=== PATIENT | male | born 1940 | race Caucasian/White ===

== ENCOUNTER → 2019-05-27 15:13 | Outpatient (CLI) | payer MEDICARE, BC, SELFPAY ==
--- NOTE | 2019-05-27 | DI.ECHO.S_ITS ---
[place] +---------+ Hospital +---------+ : : [address] : [place] : : : : [id number] : : : : Phone: [phone] +---------+ Echocardiogram Report + + :Name: ERNESTO MCGRATH Study Date: 05/27/2019 Height: 73 in : :[facility] Weight: 225 lb : : Gender: Male BSA: 2.3 m2 : :: 1940 Age: 78 yrs BP: 144/86 mmHg: :Reason For Study: MURMUR : :Ordering Physician: Maged : :Lucius Performed By: Esa Oneill : :Referring: MAGED HAWKINS : + + Interpretation Summary Left ventricular systolic function is normal without focal wall motion abnormalities with the ejection fraction visually estimated to be 60-65%. There is borderline concentric left ventricular hypertrophy and diastolic parameters suggest a relaxation abnormality of the left ventricle, consistent with probable normal filling pressures. There has been no significant change since the previous study. The right ventricle is mild to moderately dilated but systolic function is normal and appears unchanged compared to the previous study. Pulmonary artery pressures cannot be estimated because of the lack of a measurable TR jet velocity. The left atrium is mildly dilated and measures slightly larger compared to the previous study. The aortic valve is moderately calcified with mild aortic stenosis that is progressive compared to the previous study. The peak aortic velocity is 2.3 m/s with a mean gradient of 12 mmHg compared to 1.7 m/s and mean gradient of 6 mmHg on the previous study. The calculated aortic valve area is 1.6 sports manager?. There is no other significant valvular heart disease. Procedure: A two-dimensional transthoracic echocardiogram with color flow and Doppler was performed. The study quality was technically adequate. Comparison is made with the echocardiogram of 12/18/2007. The patient was in normal sinus rhythm during the exam. Left Ventricle: The left ventricle is normal in size. There is borderline concentric left ventricular hypertrophy. Left ventricular systolic function is normal without focal wall motion abnormalities. The ejection fraction is estimated to be 60-65%. Diastolic parameters suggest a relaxation abnormality of the left ventricle, consistent with probable normal filling pressures. There has been no significant change since the previous study. Right Ventricle: The right ventricle is mild to moderately dilated. The right ventricular systolic function is normal. This is unchanged compared to the previous study. Atria: The left atrium is mildly dilated. This is slightly larger compared to the previous study. Right atrial size is normal. This is unchanged compared to the previous study. The interatrial septum is intact with no evidence for an atrial septal defect. Mitral Valve: There is mild mitral annular calcification. The mitral valve leaflets appear mildly thickened, but open well. There is trace mitral regurgitation. This is unchanged compared to the previous study. Aortic Valve: The aortic valve is trileaflet. The aortic valve is moderately calcified. There is mild to moderately reduced leaflet mobility. There is mild aortic stenosis. This is progressive compared to the previous study. The peak aortic velocity is 2.3 m/sec. The aortic valve mean gradient is 12 mmHg. The calculated aortic valve area is 1.6 cm2. No aortic regurgitation is present. Tricuspid Valve: The tricuspid valve is normal in structure and function. There is trace tricuspid regurgitation. Pulmonary artery pressures cannot be estimated because of the lack of a measurable TR jet velocity. Pulmonic Valve: The pulmonic valve is normal in structure and function. There is trace pulmonic regurgitation. There is no other significant valvular heart disease. Great Vessels: The aortic root is normal size. The dimensions of the ascending aorta are normal. The pulmonary artery is normal size. The inferior vena cava was not visualized. Pericardium/ Pleura There is no pericardial effusion. There is no pleural effusion. MMode/2D Measurements & Calculations LVIDd: 4.5 cm LVOT diam: 2.2 cm LVIDs: 2.9 cm Ao root diam: 3.4 cm FS: 35.7 % Aortic Jxn: 3.1 cm EPSS: 0.54 cm IVSd: 1.1 cm LVPWd: 1.1 cm LV valenzuela. diameter/BSA (cm/m^2): 2.0 LV sys. diameter/BSA (cm/m^2): 1.3 LA A2 area: 25.0 cm2 RA long axis: 5.7 cm LA A4 area: 23.9 cm2 RA area: 16.2 cm2 LA length (vol): 6.4 cm RA vol: 39.3 ml LA vol: 79.5 ml RA : 17.4 ml/m2 LA vol index: 35.1 ml/m2 TAPSE: 2.3 cm Doppler Measurements & Calculations Ao V2 max: 221.9 cm/sec LVOT Max Tyrone: 89.1 cm/sec Ao V2 mean: 165.8 cm/sec LV V1 max P.2 mmHg Ao max P.7 mmHg LV V1 VTI: 21.9 cm Ao mean P.4 mmHg SASHA(I,D): 1.6 cm2 Ao V2 VTI: 52.5 cm SASHA(V,D): 1.6 cm2 sev ratio: 0.42 SASHA indexed to BSA (cm^2/m^2): 0.73 MV E max tyrone: 50.2 cm/sec PA V2 max: 109.3 cm/sec MV A max tyrone: 73.7 cm/sec PA V2 mean: 84.1 cm/sec MV E/A: 0.68 PA mean P.1 mmHg Med Peak E' Tyrone: 5.0 cm/sec PA Accel Time: 0.11 sec E/E' med: 10.1 Lat Peak E' Tyrone: 9.8 cm/sec E/E' lat: 5.1 E/e' average: 7.6 MV dec time: 0.25 sec SV(LVOT): 86.3 ml Reading Physician:RALF
== END ==
PROVIDERS: PCP Family Medicine; Visit Provider Specialist
DX: I35.0 Nonrheumatic aortic (valve) stenosis (principal); R01.1 Cardiac murmur, unspecified
CPT/HCPCS: 93306

== ENCOUNTER → 2020-11-09 14:38 | Outpatient (CLI) | payer MEDICARE, BC, SELFPAY ==
--- NOTE | 2020-11-09 14:40 | DI.ECHO.S_ITS ---
[place] +---------+ Hospital +---------+ : : [address] : [place] : : : : [id number] : : : : Phone: [phone] +---------+ Echocardiogram Report + + :Name: ERNESTO MCGRATH Study Date: 11/09/2020 Height: 73 in : :[facility] ReadingLocation: Weight: 225 lb : : Gender: Male BSA: 2.3 m2 : :: 1940 Age: 79 yrs BP: 136/97 mmHg: :Reason For Study: AORTIC STENOSIS : :Ordering Physician: SHRUTHI, : :MAGED Performed By: Cathy Sprague : :Referring: MAGED HAWKINS : + + Interpretation Summary Left ventricular systolic function remains normal with an estimated ejection fraction of 60 to 65% without any focal wall motion abnormality. Left ventricular size and wall thickness remain normal. Diastolic function is likely normal with probable normal filling pressures. There has been no significant change since the previous study. The right ventricle is mildly enlarged with mildly reduced systolic function and appears slightly less dynamic compared to the previous study. Right ventricular systolic pressure and CVP cannot be measured. Both atria are normal in size and grossly unchanged from the previous exam. There is probable mild to moderate aortic stenosis, slightly progressive since the previous study with a peak velocity of 2.7 m/s and a mean gradient of 17 mmHg, compared to 2.2 m/s and 12 mmHg, respectively, on the previous study. The severity ratio has decreased slightly from 0.42 down to 0.37. There is no other significant valvular abnormality. The ascending aorta is mildly enlarged and the aortic arch measures moderately enlarged. These were unable to be visualized on the previous study. Procedure: A two-dimensional transthoracic echocardiogram with color flow and Doppler was performed. The study quality was technically adequate. Comparison is made with the echocardiogram of 05/27/2019. The patient was in sinus rhythm with heart rates between 62-68 bpm during the exam. Left Ventricle: The left ventricle appears normal in size, wall thickness, and systolic function without any focal wall motion abnormalities. The estimated left ventricular end diastolic volume is 94 ml. The ejection fraction is estimated to be 60-65%. This is unchanged compared to the previous study. Diastolic parameters suggest probable normal left ventricular diastolic function and normal filling pressures. Right Ventricle: The right ventricle is mildly dilated. Right ventricular systolic function is mildly reduced. This is slightly less dynamic compared to the previous study. Atria: Both atria are normal in size. This is grossly unchanged compared to the previous study. There is no Doppler evidence for an interatrial shunt. Mitral Valve: There is mild mitral annular calcification. The mitral valve leaflets appear borderline thickened, but open well. There is trace mitral regurgitation. Aortic Valve: The aortic valve is trileaflet. The aortic valve is moderately calcified. There is moderately reduced leaflet mobility. There is mild to moderate aortic stenosis. This is slightly progressive compared to the previous study. The peak aortic velocity is 2.7 m/sec. The aortic valve mean gradient is 17 mmHg. The calculated aortic valve area is 1.3 cm2. There is trace aortic regurgitation. Tricuspid Valve: The tricuspid valve is normal in structure and function. There is trace tricuspid regurgitation. Pulmonary artery pressures cannot be estimated because of the lack of a measurable TR jet velocity. Pulmonic Valve: The pulmonic valve leaflets are thin and pliable; valve motion is normal. There is no pulmonic valvular regurgitation. Great Vessels: The aortic root is normal size. The ascending aorta is mildly enlarged. The aortic arch is moderately enlarged. The inferior vena cava was not visualized. Pericardium/ Pleura There is no pericardial effusion. There is no pleural effusion. MMode/2D Measurements & Calculations LVIDd: 4.9 cm LVOT diam: 2.2 cm LVIDs: 3.2 cm Ao root diam: 3.4 cm FS: 35.9 % asc Aorta Diam: 3.7 cm IVSd: 0.97 cm Ao Arch Diam (Prox Trans): 3.8 cm LVPWd: 0.88 cm LV valenzuela. diameter/BSA (cm/m^2): 2.2 LV sys. diameter/BSA (cm/m^2): 1.4 LA A2 area: 21.0 cm2 RA long axis: 5.9 cm LA A4 area: 20.5 cm2 RA area: 19.3 cm2 LA length (vol): 6.0 cm RA vol: 53.1 ml LA vol: 61.2 ml RA : 23.5 ml/m2 LA vol index: 27.0 ml/m2 RVD1 (basal): 4.3 cm RVD2 (mid): 4.5 cm TAPSE: 1.8 cm Doppler Measurements & Calculations Ao V2 max: 266.3 cm/sec LVOT Max Tyrone: 92.0 cm/sec Ao V2 mean: 187.3 cm/sec LV V1 max P.4 mmHg Ao max P.4 mmHg LV V1 VTI: 21.8 cm Ao mean P.8 mmHg SASHA(I,D): 1.4 cm2 Ao V2 VTI: 59.5 cm SASHA(V,D): 1.3 cm2 sev ratio: 0.37 SASHA indexed to BSA (cm^2/m^2): 0.63 MV E max tyrone: 58.3 cm/sec PA V2 max: 136.3 cm/sec MV A max tyrone: 73.3 cm/sec PA V2 mean: 88.9 cm/sec MV E/A: 0.80 PA mean P.5 mmHg Med Peak E' Tyrone: 6.1 cm/sec PA pr(Accel): 48.2 mmHg E/E' med: 9.5 Lat Peak E' Tyrone: 8.6 cm/sec E/E' lat: 6.7 E/e' average: 8.1 MV dec time: 0.33 sec SV(LVOT): 84.2 ml Reading Physician:08:14 AM
== END ==
PROVIDERS: PCP Family Medicine; Referring Provider Specialist; Visit Provider Specialist
DX: I35.0 Nonrheumatic aortic (valve) stenosis (principal); R06.00 Dyspnea, unspecified; I77.89 Other specified disorders of arteries and arterioles
CPT/HCPCS: 93306

== ENCOUNTER → 2020-11-23 08:12 | Outpatient (CLI) | payer MEDICARE, BC, SELFPAY ==
[2020-11-23 19:12] LABS: Alanine Aminotransferase 20 IU/L (<50); Albumin 3.8 g/dL (3.5-5.0); Albumin Globulin Ratio 1.5 (1.0-2.8); Alkaline Phosphatase 64 U/L (38-126); Aspartate Aminotransferase 28 IU/L (17-59); BUN Creatinine Ratio 16.5 (6-22); Bilirubin Total 0.6 mg/dL (0.2-1.3); Blood Urea Nitrogen 14 mg/dL (9-20); Calcium 9.7 mg/dL (8.4-10.2); Carbon Dioxide 29 mmol/L (22-32); Chloride 107 mmol/L (98-107); Estimated Glomerular Filt Rate > 60.0 mL/min (>60); Globulin 2.6 g/dL (1.7-4.1); Glucose 105 mg/dL (80-110); HEMOLYSIS < 15 (0-50); Magnesium 1.8 mg/dL (1.6-2.3); Potassium 5.3 mmol/L (3.4-5.1); Sodium 141 mmol/L (137-145); Total Protein 6.4 g/dL (6.3-8.2)
[2020-11-26 11:40] LABS: Cholesterol, Total 150 mg/dL (100-199); HDL-Cholesterol 55 mg/dL (>39); HDL-Particle (Total) 33.7 umol/L (>=30.5); LDL Particle 763 nmol/L (<1000); LDL-Cholsterol 81 mg/dL (0-99); LP-IR Score 47 (<=45); Small LDL- Particle 207 nmol/L (<=527); Triglycerides 72 mg/dL (0-149)
== END ==
PROVIDERS: PCP Family Medicine; Visit Provider Physician Assistant Medical
DX: I10 Essential (primary) hypertension (principal); E78.2 Mixed hyperlipidemia
CPT/HCPCS: 80053; 80061; 83704; 83735

== ENCOUNTER → 2020-12-01 12:06 | Outpatient (CLI) | payer MEDICARE, BC, SELFPAY ==
[2020-12-01 19:41] LABS: Alanine Aminotransferase 22 IU/L (<50); Albumin 3.7 g/dL (3.5-5.0); Albumin Globulin Ratio 1.4 (1.0-2.8); Alkaline Phosphatase 69 U/L (38-126); Aspartate Aminotransferase 33 IU/L (17-59); BUN Creatinine Ratio 17.9 (6-22); Bilirubin Total 0.5 mg/dL (0.2-1.3); Blood Urea Nitrogen 14 mg/dL (9-20); Calcium 9.4 mg/dL (8.4-10.2); Carbon Dioxide 25 mmol/L (22-32); Chloride 106 mmol/L (98-107); Estimated Glomerular Filt Rate > 60.0 mL/min (>60); Globulin 2.6 g/dL (1.7-4.1); Glucose 91 mg/dL (80-110); HEMOLYSIS < 15 (0-50); Potassium 4.5 mmol/L (3.4-5.1); Sodium 138 mmol/L (137-145); Total Protein 6.3 g/dL (6.3-8.2)
== END ==
PROVIDERS: Specialist; PCP Family Medicine; Visit Provider Family Medicine
DX: N31.9 Neuromuscular dysfunction of bladder, unspecified (principal)
CPT/HCPCS: 80053

== ENCOUNTER → 2021-02-16 09:01 | Outpatient (CLI) | payer MEDICARE, BC, SELFPAY ==
[2021-02-16 19:32] LABS: Add Manual Diff / Slide Review NO; Basophils Absolute Auto 0 /uL (0-100); Basophils Percent Auto 0.2 % (0-2); Eosinophils Absolute Auto 100 /uL (0-450); Eosinophils Percent Auto 1.9 % (2-4); Hematocrit 47.4 % (41-53); Hemoglobin 15.5 g/dL (13.5-17.5); Lymphocytes Absolute Auto 1500 /uL (1100-4500); Lymphocytes Percent Auto 31.1 % (25-40); Mean Corpuscular HGB Conc 32.7 % (30-36); Mean Corpuscular Hemoglobin 30.6 PG (26-34); Mean Corpuscular Volume 93.4 fL (80-100); Monocytes Absolute Auto 400 /uL (0-900); Monocytes Percent Auto 9.1 % (3-14); Neutrophils Absolute Auto 2800 /uL (1500-7000); Neutrophils Percent Auto 57.7 % (50-75); Platelet Count 147 X10^3/uL (150-400); Red Blood Cell Count 5.07 X10^6/uL (4.5-5.9); White Blood Cell Count 4.8 X10^3/uL (4.5-11.0)
[2021-02-16 19:50] LABS: Alanine Aminotransferase 19 IU/L (<50); Albumin Globulin Ratio 1.6 (1.0-2.8); Alkaline Phosphatase 64 U/L (38-126); Aspartate Aminotransferase 28 IU/L (17-59); BUN Creatinine Ratio 15.7 (6-22); Bilirubin Total 0.7 mg/dL (0.2-1.3); Blood Urea Nitrogen 13 mg/dL (9-20); Calcium 9.6 mg/dL (8.4-10.2); Carbon Dioxide 29 mmol/L (22-32); Chloride 104 mmol/L (98-107); Cholesterol 174 mg/dL (140-199); Estimated Glomerular Filt Rate > 60.0 mL/min (>60); Globulin 2.5 g/dL (1.7-4.1); Glucose 106 mg/dL (80-110); HDL Cholesterol 57 mg/dL (40-60); HEMOLYSIS < 15 (0-50); LDL Cholesterol Calculated 98 mg/dL (<100); Potassium 4.4 mmol/L (3.4-5.1); Sodium 139 mmol/L (137-145); Total Protein 6.5 g/dL (6.3-8.2); Triglycerides 95 mg/dL (35-150)
[2021-02-16 20:19] LABS: Prostate Specific Antigen Scrn 3.48 ng/mL (0.1-4.0)
[2021-02-16 20:21] LABS: Thyroid Stimulating Hormone 1.69 uIU/mL (0.47-4.68)
== END ==
PROVIDERS: PCP Family Medicine; Visit Provider Family Medicine
DX: I10 Essential (primary) hypertension (principal); Z12.5 Encounter for screening for malignant neoplasm of prostate
CPT/HCPCS: 80053; 80061; 84443; 85025; G0103

== ENCOUNTER → 2021-06-10 09:50 | Outpatient (CLI) | payer MEDICARE, BC, SELFPAY ==
[2021-06-10 19:44] LABS: Alanine Aminotransferase 18 IU/L (<50); Albumin Globulin Ratio 1.5 (1.0-2.8); Alkaline Phosphatase 65 U/L (38-126); Aspartate Aminotransferase 27 IU/L (17-59); BUN Creatinine Ratio 18.2 (6-22); Bilirubin Total 0.7 mg/dL (0.2-1.3); Blood Urea Nitrogen 16 mg/dL (9-20); Calcium 9.8 mg/dL (8.4-10.2); Carbon Dioxide 27 mmol/L (22-32); Chloride 108 mmol/L (98-107); Estimated Glomerular Filt Rate > 60.0 mL/min (>60); Globulin 2.6 g/dL (1.7-4.1); Glucose 111 mg/dL (80-110); HEMOLYSIS < 15 (0-50); Magnesium 1.7 mg/dL (1.6-2.3); Potassium 4.1 mmol/L (3.4-5.1); Sodium 139 mmol/L (137-145); Total Protein 6.6 g/dL (6.3-8.2)
[2021-06-14 08:13] LABS: Cholesterol, Total 184 mg/dL (100-199); HDL-Cholesterol 52 mg/dL (>39); HDL-Particle (Total) 32.2 umol/L (>=30.5); LDL Particle 1353 nmol/L (<1000); LDL Size 21.3 nm (>20.5); LDL-Cholsterol 110 mg/dL (0-99); LP-IR Score 42 (<=45); Small LDL- Particle 413 nmol/L (<=527); Triglycerides 126 mg/dL (0-149)
== END ==
PROVIDERS: PCP Family Medicine; Visit Provider Specialist
DX: I10 Essential (primary) hypertension (principal); E78.2 Mixed hyperlipidemia
CPT/HCPCS: 80053; 80061; 83704; 83735

== ENCOUNTER → 2021-08-24 13:28 | Outpatient (CLI) | payer MEDICARE, BC, SELFPAY ==
[2021-08-24 19:11] LABS: BUN Creatinine Ratio 18.2 (6-22); Blood Urea Nitrogen 16 mg/dL (9-20); Calcium 9.7 mg/dL (8.4-10.2); Carbon Dioxide 31 mmol/L (22-32); Chloride 105 mmol/L (98-107); Estimated Glomerular Filt Rate > 60 mL/min (>60); Glucose 123 mg/dL (80-110); HEMOLYSIS < 15 (0-50); Potassium 4.9 mmol/L (3.4-5.1); Sodium 141 mmol/L (137-145)
[2021-08-24 19:48] LABS: Prostate Specific Antigen 3.21 ng/mL (0.10-4.00)
== END ==
PROVIDERS: PCP Family Medicine; Visit Provider Family Medicine
DX: R97.20 Elevated prostate specific antigen [PSA] (principal); I10 Essential (primary) hypertension
CPT/HCPCS: 80048; 84153

== ENCOUNTER → 2021-12-26 13:45 | Outpatient (CLI) | payer MEDICARE, BC, SELFPAY ==
[2021-12-26 19:48] LABS: Alanine Aminotransferase 19 IU/L (<50); Albumin 4.1 g/dL (3.5-5.0); Albumin Globulin Ratio 1.6 (1.0-2.8); Alkaline Phosphatase 72 U/L (38-126); Aspartate Aminotransferase 27 IU/L (17-59); BUN Creatinine Ratio 21.1 (6-22); Bilirubin Total 0.6 mg/dL (0.2-1.3); Blood Urea Nitrogen 19 mg/dL (9-20); Calcium 9.2 mg/dL (8.4-10.2); Carbon Dioxide 25 mmol/L (22-32); Chloride 106 mmol/L (98-107); Estimated Glomerular Filt Rate > 60 mL/min (>60); Globulin 2.5 g/dL (1.7-4.1); Glucose 96 mg/dL (80-110); HEMOLYSIS < 15 (0-50); Magnesium 1.9 mg/dL (1.6-2.3); Potassium 4.1 mmol/L (3.4-5.1); Sodium 138 mmol/L (137-145); Total Protein 6.6 g/dL (6.3-8.2)
[2021-12-29 08:09] LABS: Cholesterol, Total 136 mg/dL (100-199); HDL-Cholesterol 59 mg/dL (>39); HDL-Particle (Total) 35.1 umol/L (>=30.5); LDL Particle 818 nmol/L (<1000); LDL Size 20.5 nm (>20.5); LDL-Cholsterol 61 mg/dL (0-99); LP-IR Score 42 (<=45); Small LDL- Particle 276 nmol/L (<=527); Triglycerides 81 mg/dL (0-149)
== END ==
PROVIDERS: PCP Family Medicine; Visit Provider Specialist
DX: I10 Essential (primary) hypertension (principal); E78.2 Mixed hyperlipidemia
CPT/HCPCS: 80053; 80061; 83704; 83735

== ENCOUNTER → 2022-02-16 12:05 | Outpatient (CLI) | payer MEDICARE, BC, SELFPAY ==
[2022-02-16 19:43] LABS: Alanine Aminotransferase 24 IU/L (<50); Albumin 3.9 g/dL (3.5-5.0); Albumin Globulin Ratio 1.3 (1.0-2.8); Alkaline Phosphatase 75 U/L (38-126); Aspartate Aminotransferase 29 IU/L (17-59); BUN Creatinine Ratio 22.8 (6-22); Bilirubin Total 0.6 mg/dL (0.2-1.3); Blood Urea Nitrogen 18 mg/dL (9-20); Calcium 9.2 mg/dL (8.4-10.2); Carbon Dioxide 31 mmol/L (22-32); Chloride 103 mmol/L (98-107); Cholesterol 146 mg/dL (140-199); Estimated Glomerular Filt Rate > 60 mL/min (>60); Globulin 2.9 g/dL (1.7-4.1); Glucose 84 mg/dL (80-110); HDL Cholesterol 57 mg/dL (40-60); HEMOLYSIS < 15 (0-50); LDL Cholesterol Calculated 66 mg/dL (<100); Potassium 4.3 mmol/L (3.4-5.1); Sodium 139 mmol/L (137-145); Total Protein 6.8 g/dL (6.3-8.2); Triglycerides 117 mg/dL (35-150)
[2022-02-16 19:53] LABS: LDL Cholesterol Direct 64 mg/dL (<100)
[2022-02-16 20:11] LABS: Prostate Specific Antigen Scrn 3.65 ng/mL (0.1-4.0)
== END ==
PROVIDERS: PCP Family Medicine; Visit Provider Family Medicine
DX: I10 Essential (primary) hypertension (principal); Z12.5 Encounter for screening for malignant neoplasm of prostate; E78.00 Pure hypercholesterolemia, unspecified; I25.10 Atherosclerotic heart disease of native coronary artery without angina pectoris; R97.20 Elevated prostate specific antigen [PSA]
CPT/HCPCS: 80053; 80061; 83721; G0103

== ENCOUNTER → 2022-03-15 10:01 | Outpatient (CLI) | payer MEDICARE, BC, SELFPAY ==
[2022-03-15 20:52] LABS: Appearance Urine UA CLEAR; Bilirubin Urine UA NEGATIVE (NEGATIVE); Color Urine UA YELLOW; Glucose Urine UA NEGATIVE (Negative); Ketones Urine UA NEGATIVE (NEGATIVE); Leukocyte Esterase Urine UA TRACE (NEGATIVE); Nitrite Urine UA NEGATIVE (Negative); Occult Blood Urine UA NEGATIVE (Negative); Protein Urine UA NEGATIVE (Negative); Specific Gravity Urine UA 1.015 (1.000-1.035); Urobilinogen Urine UA 0.2 E.U./dL (0.2)
[2022-03-15 20:53] LABS: Bacteria Urine None Seen; Culture Indicated Urine Specimen Cultured; RBC Urine None Seen (0-5/HPF); WBC Urine 0-1/HPF (0-5/HPF)
== END ==
PROVIDERS: PCP Family Medicine; Visit Provider Anesthesiology Pain Medicine
DX: Z87.440 Personal history of urinary (tract) infections (principal)
CPT/HCPCS: 81001; 87086

== ENCOUNTER → 2022-09-04 09:48 | Outpatient (CLI) | payer MEDICARE, BC, SELFPAY ==
--- NOTE | 2022-09-04 09:49 | DI.RAD.S_ITS ---
PROCEDURE: XR CERVICAL SPINE 4V OR 5V INDICATIONS: NECK PAIN TECHNIQUE: 5 views of the cervical spine acquired. COMPARISON: [facility], RG, XR C-SPINE 4-6V, 06/01/2021, 13:55. FINDINGS: Bones: There is exaggerated lordosis of the cervical spine. There is grade 1 C3 on C4 retrolisthesis and trace anterolisthesis at C4-5. No compression deformities. Degenerative changes including intervertebral disc space narrowing, endplate sclerosis, and osteophytosis are present and appear unchanged from the study dated June 01, 2021. There is moderate foraminal stenosis on the right at C3-4 and severe foraminal stenosis on the right at C4-5 and C5-6. No significant left neural foraminal stenosis. Soft tissues: No prevertebral soft tissue swelling. IMPRESSION: 1. Exaggerated lordosis and degenerative changes similar to the study dated June 01, 2021. 2. 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 Dictated by: Susannah Barnett M.D. on 09/04/2022 at 17:02 Approved by: Susannah Barnett M.D. on 09/04/2022 at 17:05
--- NOTE | 2022-09-04 09:49 | DI.RAD.S_ITS ---
PROCEDURE: XR KNEE RT 3V INDICATIONS: Right KNEE PAIN TECHNIQUE: 3 views of the knee were acquired. COMPARISON: None. FINDINGS: Bones: No fractures or dislocations. No suspicious bony lesions. Moderate tricompartmental arthritic change most severe medially. Soft tissues: Mild joint effusion. No suspicious soft tissue calcifications. IMPRESSION: Mild effusion. No visualized acute fracture or dislocation. However, if clinical concern and/or pain persist, short interval imaging followup in 7-10 days is recommended, as occult injury cannot be definitively excluded. Dictated by: Danna Jones M.D. on 09/04/2022 at 12:15 Approved by: Danna Jones M.D. on 09/04/2022 at 12:16
== END ==
PROVIDERS: PCP Family Medicine; Referring Provider Anesthesiology; Visit Provider Anesthesiology
DX: M48.02 Spinal stenosis, cervical region (principal); M47.812 Spondylosis without myelopathy or radiculopathy, cervical region; M25.561 Pain in right knee; M25.461 Effusion, right knee; M54.2 Cervicalgia; G89.29 Other chronic pain
CPT/HCPCS: 72050; 73562; 99214

== ENCOUNTER → 2022-09-22 10:59 | Outpatient (CLI) | payer MEDICARE, BC, SELFPAY ==
--- NOTE | 2022-09-22 11:00 | DI.US.S_ITS ---
PROCEDURE: US PERIPH VENOUS UP EXTREM RT INDICATIONS: RIGHT SHOULDER NUMBNESS TECHNIQUE: Real-time imaging, as well as color and pulse Doppler interrogation, was performed of the right upper extremity deep veins from the inferior neck to the antecubital fossa. COMPARISON: None. FINDINGS: The internal jugular vein, visualized portions of the subclavian vein, axillary, and brachial veins are free of intraluminal thrombus. Where physically possible, the veins are normally compressible. Color and pulse Doppler demonstrate normal intraluminal flow, with expected phasicity and pulsatility. Additional scanning of the cephalic and basilic veins of the superficial system demonstrate normal compressibility, without thrombus. IMPRESSION: Negative for deep venous thrombosis. Dictated by: Herb Fernandez M.D. on 09/22/2022 at 12:02 Approved by: Herb Fernandez M.D. on 09/22/2022 at 12:03
== END ==
PROVIDERS: PCP Physician Assistant Medical; Referring Provider Physician Assistant Medical; Visit Provider Physician Assistant Medical
DX: R20.0 Anesthesia of skin (principal)
CPT/HCPCS: 93971

== ENCOUNTER → 2022-11-16 11:00 | Outpatient (CLI) | payer MEDICARE, BC, SELFPAY ==
--- NOTE | 2022-11-16 12:16 | DI.MRI.S_ITS ---
PROCEDURE: MR CERVICAL SPINE WO CON INDICATIONS: Cervical radiculopathy TECHNIQUE: Noncontrast sagittal T1 spin echo and T2 fast spin echo, sagittal STIR, foraminal oblique sagittal T2 fast spin echo, and axial gradient echo or T2 fast spin echo through the cervical spine. COMPARISON: None. FINDINGS: Image quality: Excellent. Alignment and Curvature: There is normal bony alignment. Bone Marrow: Marrow demonstrates normal overall signal. Spinal Cord: Visualized spinal cord has normal size and signal. No cerebellar tonsillar herniation. Paraspinous Soft Tissues: No paravertebral masses. Prevertebral soft tissues are normal in thickness. C2-C3: Disc desiccation and moderate disc height loss. Mild left uncovertebral hypertrophy. Mild bilateral neural foraminal narrowing. C3-C4: Disc desiccation. Moderate disc height loss. Bilateral facet hypertrophy. [id number] bilateral neural foraminal narrowing. C4-C5: Disc desiccation. Bilateral facet hypertrophy and mild uncovertebral hypertrophy. Mild to moderate bilateral neural foraminal narrowing. C5-C6: Disc desiccation. Moderate disc height loss, uncovertebral hypertrophy and bilateral facet hypertrophy causing mild spinal canal narrowing and moderate right and mild left neural foraminal narrowing. C6-C7: Disc desiccation. Moderate disc height loss. Left greater than right facet hypertrophy and minimal uncovertebral hypertrophy. Mild spinal canal narrowing. No significant neural foraminal narrowing. C7-T1: Disc desiccation. Moderate disc height loss. Bilateral facet hypertrophy. 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 Dictated by: Sandeep Maldonado M.D. on 11/16/2022 at 16:56 Approved by: Sandeep Maldonado M.D. on 11/16/2022 at 17:01
== END ==
PROVIDERS: PCP Family Medicine; Referring Provider Anesthesiology; Visit Provider Anesthesiology
DX: M50.11 Cervical disc disorder with radiculopathy, high cervical region (principal); M47.22 Other spondylosis with radiculopathy, cervical region; M48.02 Spinal stenosis, cervical region
CPT/HCPCS: 72141

== ENCOUNTER → 2022-12-06 10:45 | Outpatient (CLI) | payer MEDICARE, BC, SELFPAY ==
[2022-12-06 12:18] LABS: Alanine Aminotransferase 28 IU/L (<50); Albumin 4.3 g/dL (3.5-5.0); Albumin Globulin Ratio 1.7 (1.0-2.8); Alkaline Phosphatase 70 U/L (38-126); Aspartate Aminotransferase 31 IU/L (17-59); BUN Creatinine Ratio 19.2 (6-22); Bilirubin Total 0.7 mg/dL (0.2-1.3); Blood Urea Nitrogen 15 mg/dL (9-20); Calcium 9.5 mg/dL (8.4-10.2); Carbon Dioxide 31 mmol/L (22-32); Chloride 103 mmol/L (98-107); Cholesterol 133 mg/dL (140-199); Estimated Glomerular Filt Rate > 60 mL/min (>60); Globulin 2.6 g/dL (1.7-4.1); Glucose 95 mg/dL (80-110); HDL Cholesterol 63 mg/dL (40-60); HEMOLYSIS < 15 (0-50); LDL Cholesterol Calculated 52 mg/dL (<100); Magnesium 2.1 mg/dL (1.6-2.3); Potassium 4.4 mmol/L (3.4-5.1); Sodium 139 mmol/L (137-145); Total Protein 6.9 g/dL (6.3-8.2); Triglycerides 88 mg/dL (35-150)
== END ==
PROVIDERS: PCP Family Medicine; Visit Provider Specialist
DX: I10 Essential (primary) hypertension (principal); E78.2 Mixed hyperlipidemia
CPT/HCPCS: 36415; 80053; 80061; 83735

== ENCOUNTER → 2023-01-01 09:34 | Outpatient (CLI) | payer MEDICARE, BC, SELFPAY ==
--- NOTE | 2023-01-01 | DI.ECHO.S_ITS ---
[place] +---------+ Hospital +---------+ : : [address] : [place] : : : : [id number] : : : : Phone: [phone] +---------+ Echocardiogram Report + + :Name: ERNESTO MCGRATH Study Date: 01/01/2023 Height: 73 in : :[facility] ReadingLocation: Weight: 225 lb : : Gender: Male BSA: 2.3 m2 : :: 1940 Age: 82 yrs BP: 153/104 mmHg: :Reason For Study: Nonrheumatic Aortic Valve Stenosis : :Ordering Physician: SHRUTHI, : :MAGED Performed By: Kimmy Thrasher : :Referring: MAGED HAWKINS : + + Interpretation Summary Left ventricular systolic function remains normal with an estimated ejection fraction of 60 to 65% without any focal wall motion abnormality. Left ventricular volumes visually appear unchanged although measured volume has increased from 94 mL to 129 mL. There is a probable diastolic relaxation abnormality with normal filling pressures that is likely unchanged from the previous study. The right ventricle is borderline enlarged with normal systolic function and appears slightly smaller and slightly more dynamic compared to the previous study. Right ventricular systolic pressure cannot be estimated but CVP is likely around 3 mmHg. Both atria are normal in size and grossly unchanged from the previous study. There is moderate aortic stenosis, likely slightly progressive since the previous study with a peak velocity of 3.2 m/s and a mean gradient of 23 mmHg, compared to 2.7 m/s, and 17 mmHg, respectively, previously. The severity ratio has fallen from 0.37 down to 0.32. There is mild to moderate mitral annular calcification but no other significant valvular abnormality. The ascending aorta is borderline enlarged at 3.7 cm but identical to the previous study. Procedure: A two-dimensional transthoracic echocardiogram with color flow and Doppler was performed. The study quality was technically adequate. Comparison is made with the echocardiogram of 11/09/2020. The patient was in normal sinus rhythm during the exam. Left Ventricle: The left ventricle appears normal in size, wall thickness, and systolic function without any focal wall motion abnormalities. The estimated left ventricular end diastolic volume is 129 ml compared with the previous 94 ml. The ejection fraction is estimated to be 60-65%. Diastolic parameters suggest a relaxation abnormality of the left ventricle, consistent with probable normal filling pressures. There has been no significant change since the previous study. Right Ventricle: The right ventricle is borderline dilated. The right ventricular systolic function is normal. This is slightly smaller and slightly more dynamic compared to the previous study. Atria: Both atria are normal in size. This is unchanged compared to the previous study. The interatrial septum grossly appears intact with no obvious evidence for an atrial septal defect. There is no Doppler evidence for an interatrial shunt. Mitral Valve: There is mild to moderate mitral annular calcification. The mitral valve leaflets appear normal. There is no evidence of stenosis, fluttering, or prolapse. There is no mitral valve stenosis. There is trace mitral regurgitation. Aortic Valve: The aortic valve is moderately calcified. There is moderately reduced leaflet mobility. There is moderate aortic stenosis. The peak aortic velocity is 3.18 m/sec. The aortic valve mean gradient is 24 mmHg. This is slightly progressive compared to the previous study. No aortic regurgitation is present. Tricuspid Valve: The tricuspid valve is normal. There is no tricuspid stenosis. There is trace tricuspid regurgitation. Pulmonary artery pressures cannot be estimated because of the lack of a measurable TR jet velocity but the IVC suggests a CVP of around 3 mmHg. Pulmonic Valve: The pulmonic valve is not well visualized. There is no pulmonic valvular stenosis. There is trace pulmonic regurgitation. Great Vessels: The aortic root is normal size. The ascending aorta is at the upper limits of normal in size. This is unchanged compared to the previous study. The pulmonary artery is normal size. The inferior vena cava was not well visualized. Pericardium/ Pleura There is no pericardial effusion. There is no pleural effusion. MMode/2D Measurements & Calculations LVIDd: 4.8 cm LVOT diam: 2.0 cm LVIDs: 2.5 cm Ao root diam: 3.3 cm FS: 47.9 % asc Aorta Diam: 3.7 cm EPSS: 0.60 cm IVSd: 1.0 cm LVPWd: 1.0 cm LV valenzuela. diameter/BSA (cm/m^2): 2.1 LV sys. diameter/BSA (cm/m^2): 1.1 LA A2 area: 21.1 cm2 RA long axis: 5.4 cm LA A4 area: 18.8 cm2 RA area: 15.7 cm2 LA length (vol): 5.9 cm RA vol: 39.1 ml LA vol: 57.6 ml RA : 17.3 ml/m2 LA vol index: 25.4 ml/m2 RVD1 (basal): 4.1 cm LVLs ap4: 7.2 cm LVLd ap2: 8.8 cm TAPSE_phl: 2.3 cm LVLs ap2: 7.4 cm Doppler Measurements & Calculations Ao V2 max: 310.6 cm/sec LVOT Max Tyrone: 92.5 cm/sec Ao V2 mean: 224.4 cm/sec LV V1 max P.4 mmHg Ao max P.0 mmHg LV V1 VTI: 24.0 cm Ao mean P.8 mmHg SASHA(I,D): 1.0 cm2 Ao V2 VTI: 74.6 cm SASHA(V,D): 0.94 cm2 sev ratio: 0.32 SASHA indexed to BSA (cm^2/m^2): 0.45 MV E max tyrone: 68.9 cm/sec TR max tyrone: 231.0 cm/sec MV A max tyrone: 93.6 cm/sec TR max P.3 mmHg MV E/A: 0.74 PA V2 max: 155.0 cm/sec Med Peak E' Tyrone: 5.7 cm/sec PA V2 mean: 103.0 cm/sec E/E' med: 12.1 PA mean P.0 mmHg Lat Peak E' Tyrone: 6.6 cm/sec PA pr(Accel): 26.8 mmHg E/E' lat: 10.5 E/e' average: 11.3 MV dec time: 0.26 sec SV(LVOT): 75.4 ml AV VR_phl: 0.30 SASHA(VTI)/BSA_phl: 0.45 Reading Physician:12:18 PM
== END ==
PROVIDERS: PCP Family Medicine; Referring Provider Specialist; Visit Provider Specialist
DX: I34.81 Nonrheumatic mitral (valve) annulus calcification (principal); I35.0 Nonrheumatic aortic (valve) stenosis
CPT/HCPCS: 93306

== ENCOUNTER → 2023-01-12 15:22 | Outpatient (CLI) | payer MEDICARE, BC, SELFPAY ==
--- NOTE | 2023-01-12 | DI.MRI.S_ITS ---
PROCEDURE: MR KNEE RT WO CON INDICATIONS: Pain in right knee TECHNIQUE: Noncontrast sagittal PD fast spin echo and T2 fast spin echo with fat saturation, sagittal 3-D FLASH with fat saturation; coronal T1 spin echo and PD fast spin echo with fat saturation, and axial PD fast spin echo with fat saturation through the knee. COMPARISON: None. FINDINGS: Image quality: Excellent. Menisci: There is suggestion of complex oblique tear involving posterior horn of medial meniscus extending to inferior articulating surface. Peripheral displacement of medial meniscus bowing medial collateral ligament is also seen. Signal abnormality is also noted involving body and posterior horn of lateral meniscus extending to inferior articulating surface suggestive of oblique tear. Low to moderate grade partial-thickness tear involving posterior medial and lateral meniscal root ligaments are noted. Cruciate ligaments: The anterior cruciate ligament is thickened with subtle intrasubstance T2 hyperintense signal. The posterior cruciate ligament is intact. Medial structures: The medial collateral ligament appears thickened with surrounding soft tissue edema. The posterior oblique ligament, semimembranosus tendon insertions, oblique popliteal ligament, and meniscocapsular junction appear intact. Visualized portions of the pes anserinus tendons appear normal. No abnormal bursal fluid. Lateral structures: The lateral collateral ligament, long and short heads of the biceps femoris tendon appear thickened The popliteus tendon is thickened with intrasubstance T2 hyperintense signal extending to musculotendinous junction. Iliotibial band appears normal. Anterior structures: The quadriceps and patellar tendons appear intact. Patellar alignment is normal. No femoral trochlear dysplasia or ventral trochlear prominence. No edema in the infrapatellar fat pad. 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 No acute fracture or dislocation. Joint space: There is small to moderate knee joint fluid. Lobulated and septated Matthew's cyst is seen measures 2.6 x 3 x 6.7 cm in size. Normal appearing synovial plicae are incidentally noted. IMPRESSION: 1. Complex oblique tear involving posterior horn of medial meniscus extending to inferior articulating surface. Complex tear involving body and posterior horn of lateral meniscus extending to inferior articulating surface. Low to moderate grade partial-thickness tear involving posterior medial and lateral meniscal root ligaments. 2. Degenerative changes are noted involving anterior cruciate ligament. No ACL rupture. The PCL is intact. 3. Low-grade MCL and LCL sprain. Distal biceps femorals tendinosis. Tendinosis and low-grade intrasubstance partial-thickness tear involving proximal popliteus tendon extending to musculotendinous junction. 4. 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 No acute fracture or dislocation. Small to moderate joint effusion. Septated and lobulated Matthew's cyst as above. No gross loose bodies. Dictated by: Desmond Beal M.D. on 01/12/2023 at 19:35 Approved by: Desmond Beal M.D. on 01/12/2023 at 19:52
== END ==
PROVIDERS: PCP Family Medicine; Referring Provider Orthopaedic Surgery; Visit Provider Orthopaedic Surgery
DX: S83.231A Complex tear of medial meniscus, current injury, right knee, initial encounter (principal); S83.271A Complex tear of lateral meniscus, current injury, right knee, initial encounter; S83.411A Sprain of medial collateral ligament of right knee, initial encounter; M25.561 Pain in right knee; S83.421A Sprain of lateral collateral ligament of right knee, initial encounter; M25.562 Pain in left knee; M17.11 Unilateral primary osteoarthritis, right knee; M94.261 Chondromalacia, right knee; M25.461 Effusion, right knee; M71.21 Synovial cyst of popliteal space [Baker], right knee
CPT/HCPCS: 73721

== ENCOUNTER 2023-01-31 11:06 | Outpatient (CLI) | payer MEDICARE, BC, SELFPAY ==
[2023-01-31] VITALS (7 sets, daily range): BP systolic 166–196; BP diastolic 84–99; PULSE 60–72; RESP 16–20; TEMP 36.3; O2SAT 95–98
--- NOTE | 2023-01-31 11:07 | DI.RAD.S_ITS ---
PROCEDURE: PAIN C/T FACET INJ/BLK 1ST L INDICATIONS: SPINAL STENOSIS COMPARISON: [facility], MR, MR CERVICAL SPINE WO CON, 11/16/2022, 11:57. FINDINGS: Fluoroscopic spot filming was performed to verify placement of spinal needles on the right at the C4, C5, and C6 levels, as labeled on the films. Appropriate location of the needle tips was confirmed by injection of iodinated contrast. IMPRESSION: Intraprocedural examination demonstrating appropriate positions of the needles. Dictated by: Herb Fernandez M.D. on 01/31/2023 at 17:21 Approved by: Herb Fernandez M.D. on 01/31/2023 at 17:22
--- NOTE | 2023-01-31 13:09 | PC.NURSE ---
Patient reports that he will take Josee Trejoi [place] ferry and then a friend is picking him up from the ferry in Sunday. Dr. Parker aware of patient not having a ride readily available.
[2023-01-31] MEDS: BUPIVACAINE 0.5% (PF) 10 ML VIAL 5 ML INJ (13:15)
[2023-01-31] MEDS: iopamidoL 15 ML VIAL 3 ML INJ (13:15)
--- NOTE | 2023-01-31 15:31 | P.PCN_ITS ---
Date/Time/Diagnoses Date of procedure: 01/31/23 Time of procedure: 13:00 Procedure Notes Physician: Chilango Parker Total Fluoroscopy time (seconds): 25 Total sedation minutes: 0 Procedure in detail & Post-procedure care: Right C4, 5, 6 Cervical Medial Branch Blocks Indications: Hussain is presenting for treatment of cervical spondylosis with cervical pain. Preoperative diagnosis: Cervical spondylosis Postoperative diagnosis: Same Pre-procedure History: Patient demonstrates today moderate to severe non- radicular neck pain without neurologic deficit aggravated by hyperextension yes Neck pain greater than arm pain? yes Patient today has tenderness over the suspected joint(s) yes History of post-traumatic injury? no Hypertrophic arthropathy yes Neck pain associated with suspected motion segment instability, hypermobility or pseudoarthrosis no Pre-testing pain score (VAS): 3/10 Focused Examination: Ax3 Mood and affect are normal Vital Signs: VSS ASA: 2 Consent: Following review of allergies and potential side effects/complications, including, but not necessarily limited to, infection, allergic reaction, local tissue breakdown, stroke, temporary or permanent nerve injury, paralysis, and possible , the patient indicated that they understood and agreed to proceed.? An informed consent document was signed by the patient, witnessed by a nurse and placed in the patient's chart.? Additionally, other treatment options including medications and physical therapy were reviewed with the patient. All questions were answered. Site was then marked. Anesthesia: Local Position: Prone Monitoring: NIBP, Pulse oximetry, 3 lead EKG Needle used: 22G 3.5 inch spinal needle Contrast: Isovue 300M Injectate: 0.5% bupivacaine 1 mL per site Procedure: The patient was brought into the procedure room and positioned into the prone position. Skin was prepped with a Chloraprep solution, allowed to air dry, and then draped in sterile fashion.? The right C4-5 and C5-6 facet joints were visually identified with fluoroscopy. Lidocaine 1% was used to anesthetize the skin over each target destination with a 25ga needle. A 22 ga, 3.5 inch spinal needle was advanced to the location of the medial branch at the waist of the articular pillar using intermittent fluoroscopy in the AP view. Isovue 300M contrast 0.2ml was injected at each level outlining the borders for each level in the AP/lateral views and confirmed in the foraminal view. There was no evidence of vascular or intrathecal uptake. The above injectate was slowly injected at each target destination. At the end of the procedure the needles were withdrawn and Band-Aids were applied for a dressing. Post Procedure: Patient was taken to the recovery and monitored. The patient was provided a Pain Log to continue to record the patient's response to the target- specific procedure prior to the patient's follow-up visit with the referring physician. Patient was stable upon discharge. Detailed post procedure instructions were provided. Patient was asked to call in the event of worsening pain, fever, weakness, numbness or bladder or bowel incontinence. Postoperatively, the patient demonstrates the following changes with hyperextension and with tenderness over the suspected joint(s). Provacative testing using the facet loading test Right side Directly before the block ?VAS (0-10) = 3/10 5 minutes after the block VAS (0-10) = 2/10 Percentage relief obtained with this diagnostic block 33% Any improved physical functioning directly after the blocks? Range of motion Based on the medial branches blocked today, if the patient meets insurance criteria for radiofrequency, the treatment should result in the denervation of the right C4-5 and C5-6 facet joint nerves. We would expect to denervate a total of 2 facets during the radiofrequency ablation. Complications: None
== END 2023-01-31 14:01 | disposition home or self-care (01) ==
LOC: RAD 11:07
PROVIDERS: PCP Family Medicine; Referring Provider Anesthesiology; Visit Provider Anesthesiology
DX: M47.812 Spondylosis without myelopathy or radiculopathy, cervical region (principal)
CPT/HCPCS: 64490; 64491

== ENCOUNTER → 2023-05-03 09:39 | Outpatient (CLI) | payer MEDICARE, BC, SELFPAY ==
[2023-05-03 18:50] LABS: Add Manual Diff / Slide Review NO; Basophils Absolute Auto 0 /uL (0-100); Basophils Percent Auto 0.3 % (0-2); Eosinophils Absolute Auto 100 /uL (0-450); Hematocrit 43.6 % (41-53); Hemoglobin 14.9 g/dL (13.5-17.5); Lymphocytes Absolute Auto 1500 /uL (1100-4500); Lymphocytes Percent Auto 24.4 % (25-40); Mean Corpuscular HGB Conc 34.1 % (30-36); Monocytes Absolute Auto 600 /uL (0-900); Monocytes Percent Auto 8.8 % (3-14); Neutrophils Absolute Auto 4100 /uL (1500-7000); Neutrophils Percent Auto 64.5 % (50-75); Platelet Count 140 X10^3/uL (150-400); Red Blood Cell Count 4.79 X10^6/uL (4.5-5.9); Red Cell Distribution Width 14.7 % (11.6-14.8); White Blood Cell Count 6.3 X10^3/uL (4.5-11.0)
[2023-05-03 19:01] LABS: Alanine Aminotransferase 27 IU/L (<50); Albumin 3.7 g/dL (3.5-5.0); Albumin Globulin Ratio 1.3 (1.0-2.8); Alkaline Phosphatase 63 U/L (38-126); Aspartate Aminotransferase 30 IU/L (17-59); BUN Creatinine Ratio 18.5 (6-22); Bilirubin Total 0.8 mg/dL (0.2-1.3); Blood Urea Nitrogen 15 mg/dL (9-20); Calcium 9.8 mg/dL (8.4-10.2); Carbon Dioxide 30 mmol/L (22-32); Chloride 104 mmol/L (98-107); Cholesterol 126 mg/dL (140-199); Estimated Glomerular Filt Rate > 60 mL/min (>60); Globulin 2.8 g/dL (1.7-4.1); Glucose 99 mg/dL (80-110); HDL Cholesterol 54 mg/dL (40-60); HEMOLYSIS < 15 (0-50); LDL Cholesterol Calculated 57 mg/dL (<100); Potassium 4.7 mmol/L (3.4-5.1); Sodium 138 mmol/L (137-145); Total Protein 6.5 g/dL (6.3-8.2); Triglycerides 75 mg/dL (35-150)
[2023-05-03 19:30] LABS: Prostate Specific Antigen 3.58 ng/mL (0.10-4.00)
[2023-05-03 19:33] LABS: Thyroid Stimulating Hormone 1.33 uIU/mL (0.47-4.68)
== END ==
PROVIDERS: Family Provider Family Medicine; PCP Family Medicine; Visit Provider Family Medicine
DX: E78.00 Pure hypercholesterolemia, unspecified (principal); R97.20 Elevated prostate specific antigen [PSA]; I10 Essential (primary) hypertension
CPT/HCPCS: 80053; 80061; 84153; 84443; 85025

== ENCOUNTER → 2023-05-17 10:29 | Outpatient (CLI) | payer MEDICARE, BC, SELFPAY | LOC: PHYS 10:30 | PROVIDERS: Family Provider Family Medicine; PCP Family Medicine; Referring Provider Registered Nurse; Visit Provider Registered Nurse | DX: R20.0 Anesthesia of skin (principal); R20.2 Paresthesia of skin | CPT/HCPCS: 95886; 95910 ==

== ENCOUNTER → 2023-07-17 14:32 | Outpatient (CLI) | payer MEDICARE, BC, SELFPAY ==
[2023-07-17 20:06] LABS: Ferritin 61 ng/mL (18-464)
== END ==
PROVIDERS: Family Provider Family Medicine; PCP Family Medicine; Visit Provider Internal Medicine Sleep Medicine
DX: E83.10 Disorder of iron metabolism, unspecified (principal); R25.8 Other abnormal involuntary movements
CPT/HCPCS: 82728

== ENCOUNTER → 2023-11-15 10:22 | Outpatient (CLI) | payer MEDICARE, BC, SELFPAY ==
[2023-11-16 05:34] LABS: Ferritin 60 ng/mL (18-464)
== END ==
PROVIDERS: Family Provider Family Medicine; PCP Family Medicine; Visit Provider Internal Medicine Sleep Medicine
DX: E83.10 Disorder of iron metabolism, unspecified (principal); R25.8 Other abnormal involuntary movements
CPT/HCPCS: 82728; 83540; 83550

== ENCOUNTER → 2024-02-26 10:36 | Outpatient (CLI) | payer MEDICARE, BC, SELFPAY ==
[2024-02-26 19:09] LABS: Alanine Aminotransferase 29 IU/L (<50); Albumin Globulin Ratio 1.3 (1.0-2.8); Alkaline Phosphatase 63 U/L (38-126); Aspartate Aminotransferase 39 IU/L (17-59); BUN Creatinine Ratio 22.1 (6-22); Bilirubin Total 0.8 mg/dL (0.2-1.3); Blood Urea Nitrogen 21 mg/dL (9-20); Calcium 9.9 mg/dL (8.4-10.2); Carbon Dioxide 27 mmol/L (22-32); Chloride 104 mmol/L (98-107); Estimated Glomerular Filt Rate > 60 mL/min (>60); Glucose 88 mg/dL (80-110); Sodium 137 mmol/L (137-145)
[2024-02-26 19:10] LABS: HEMOLYSIS 66 (0-50); Potassium 4.8 mmol/L (3.4-5.1)
== END ==
PROVIDERS: Family Provider Family Medicine; PCP Family Medicine; Visit Provider Specialist
DX: I10 Essential (primary) hypertension (principal); E78.2 Mixed hyperlipidemia; I48.0 Paroxysmal atrial fibrillation
CPT/HCPCS: 80053; 83735

== ENCOUNTER → 2024-03-03 11:43 | Outpatient (CLI) | payer MEDICARE, BC, SELFPAY ==
--- NOTE | 2024-03-03 11:45 | DI.ECHO.S_ITS ---
[facility]---------+ [facility] : : [address] : : [place] : : [id number] : : Phone: [phone] Echocardiogram Report + + :Name: ERNESTO MCGRATH Study Date: 03/03/2024 Height: 73 in : :[facility] ReadingLocation: Weight: 225 lb : : Gender: Male BSA: 2.3 m2 : :: 1940 Age: 83 yrs BP: 163/100 mmHg: :Reason For Study: AORTIC STENOSIS : :Ordering Physician: SHRUTHI, : :MAGED Performed By: Brian Campbell : :Referring: MAGED HAWKINS : + + Interpretation Summary Left ventricular systolic function remains normal with an estimated ejection fraction of 65 to 70% without focal wall motion abnormality. Left ventricular volumes remain normal and unchanged, and there continues to be a probable diastolic relaxation abnormality but normal filling pressures, also likely unchanged from the previous study. The right ventricle remains mildly enlarged with normal systolic function and appears unchanged. Right ventricular systolic pressure is estimated at 28 mmHg plus the clinically estimated CVP. There is borderline left atrial enlargement. Both atria measure slightly larger compared to the previous study. There is mild tricuspid regurgitation that is slightly more prominent. There is probable moderate to severe aortic stenosis with a peak velocity of 3.3 m/s and a mean gradient of 27 mmHg, compared to 3.1 m/s and 23 mmHg, respectively, on the previous exam. The severity ratio has decreased from 0.32 down to 0.30 and the calculated valve area has fallen from 1.0 commercial loan underwriter? to 0.9 commercial loan underwriter?. The ascending aorta is mildly enlarged at 4.0 cm, compared to 3.7 cm previously. Procedure: A two-dimensional transthoracic echocardiogram with color flow and Doppler was performed. The study quality was technically good. Comparison is made with the echocardiogram of 01/01/2023. The patient was in normal sinus rhythm during the exam. Left Ventricle: The left ventricle is normal in size. The estimated left ventricular end diastolic volume is 120 mL compared to the previous 129 ml. There is borderline concentric left ventricular hypertrophy. There is no ventricular septal defect visualized. Left ventricular systolic function appears normal without focal wall motion abnormalities. The ejection fraction is estimated to be 65-70%. This is unchanged compared to the previous study. Diastolic parameters suggest a relaxation abnormality of the left ventricle, consistent with probable normal filling pressures. This is unchanged compared to the previous study. Right Ventricle: The right ventricle is mildly dilated. The right ventricular systolic function is normal. This is unchanged compared to the previous study. Atria: The left atrium is borderline dilated. Right atrial size is normal. This is slightly larger compared to the previous study. There is no Doppler evidence for an atrial septal defect. Mitral Valve: The mitral valve is normal in structure and function. There is mild to moderate mitral annular calcification. There is trace mitral regurgitation. This is unchanged compared to the previous study. Aortic Valve: The aortic valve is trileaflet. The aortic valve is moderately calcified. There is moderate to severely reduced leaflet mobility. There is moderate to severe aortic stenosis. This is mildly progressive compared to the previous study. The peak aortic velocity is 3.3 m/sec. The peak aortic velocity on the previous exam was 3.1 m/sec. The aortic valve mean gradient is 27 mmHg compared to the previous 23 mmHg. The severity ratio has decreased from 0.32 down to 0.30. The calculated aortic valve area has fallen from 1.0 commercial loan underwriter? to 0.9 commercial loan underwriter?. There is trace aortic regurgitation. Tricuspid Valve: The tricuspid valve is normal in structure and function. There is mild tricuspid regurgitation. This is slightly more prominent compared to the previous study. Right ventricular systolic pressure is estimated to be 28 mmHg plus the clinically estimated CVP which cannot be estimated on this exam. Pulmonic Valve: The pulmonic valve is normal in structure and function. There is no pulmonic valvular regurgitation. Great Vessels: The aortic root is normal size. The ascending aorta is mild- moderately enlarged. This is slightly larger compared to the previous study. The pulmonary artery is normal size. The inferior vena cava was not visualized. Pericardium/ Pleura There is no pericardial effusion. There is no pleural effusion. MMode/2D Measurements & Calculations LVIDd: 4.8 cm LVOT diam: 2.0 cm LVIDs: 3.1 cm Ao root diam: 3.3 cm FS: 34.5 % asc Aorta Diam: 4.0 cm EPSS: 0.65 cm IVSd: 1.1 cm LVPWd: 1.1 cm LV valenzuela. diameter/BSA (cm/m^2): 2.1 LV sys. diameter/BSA (cm/m^2): 1.4 LA A2 area: 21.1 cm2 RA long axis: 5.2 cm LA A4 area: 26.9 cm2 RA area: 17.3 cm2 LA length (vol): 6.5 cm RA vol: 48.8 ml LA vol: 74.6 ml RA : 21.6 ml/m2 LA vol index: 33.0 ml/m2 RVD1 (basal): 4.4 cm RVD2 (mid): 4.5 cm TAPSE: 2.3 cm Doppler Measurements & Calculations Ao V2 max: 331.9 cm/sec LVOT Max Tyrone: 92.0 cm/sec Ao V2 mean: 248.1 cm/sec LV V1 max P.4 mmHg Ao max P.1 mmHg LV V1 VTI: 24.2 cm Ao mean P.1 mmHg SASHA(I,D): 0.93 cm2 Ao V2 VTI: 79.8 cm SASHA(V,D): 0.85 cm2 sev ratio: 0.30 SASHA indexed to BSA (cm^2/m^2): 0.41 MV E max tyrone: 60.3 cm/sec TR max tyrone: 263.8 cm/sec MV A max tyrone: 108.9 cm/sec TR max P.8 mmHg MV E/A: 0.55 PA V2 max: 87.3 cm/sec Med Peak E' Tyrone: 4.6 cm/sec PA V2 mean: 60.4 cm/sec E/E' med: 13.0 PA mean P.6 mmHg Lat Peak E' Tyrone: 6.3 cm/sec PA pr(Accel): 39.6 mmHg E/E' lat: 9.5 E/e' average: 11.3 MV dec time: 0.36 sec SV(LVOT): 74.5 ml Reading Physician:11:11 AM
== END ==
PROVIDERS: Family Provider Family Medicine; PCP Family Medicine; Referring Provider Specialist; Visit Provider Specialist
DX: I08.3 Combined rheumatic disorders of mitral, aortic and tricuspid valves (principal); I77.89 Other specified disorders of arteries and arterioles
CPT/HCPCS: 93306

== ENCOUNTER → 2024-05-29 10:42 | Outpatient (CLI) | payer MEDICARE, SELFPAY ==
[2024-05-29 19:15] LABS: Add Manual Diff / Slide Review NO; Basophils Absolute Auto 0 /uL (0-100); Basophils Percent Auto 0.3 % (0-2); Eosinophils Absolute Auto 200 /uL (0-450); Eosinophils Percent Auto 2.7 % (2-4); Hematocrit 46.8 % (41-53); Hemoglobin 15.9 g/dL (13.5-17.5); Lymphocytes Absolute Auto 1600 /uL (1100-4500); Lymphocytes Percent Auto 21.4 % (25-40); Mean Corpuscular HGB Conc 33.9 % (30-36); Mean Corpuscular Hemoglobin 30.6 PG (26-34); Mean Corpuscular Volume 90.2 fL (80-100); Monocytes Absolute Auto 700 /uL (0-900); Monocytes Percent Auto 9.2 % (3-14); Neutrophils Absolute Auto 4900 /uL (1500-7000); Neutrophils Percent Auto 66.4 % (50-75); Platelet Count 160 X10^3/uL (150-400); Red Blood Cell Count 5.19 X10^6/uL (4.5-5.9); Red Cell Distribution Width 13.9 % (11.6-14.8); White Blood Cell Count 7.4 X10^3/uL (4.5-11.0)
[2024-05-29 19:20] LABS: HEMOLYSIS < 15 (0-50); Iron 115 ug/dL (49-181)
[2024-05-29 19:25] LABS: Alanine Aminotransferase 29 IU/L (<50); Albumin 4.3 g/dL (3.5-5.0); Albumin Globulin Ratio 1.5 (1.0-2.8); Alkaline Phosphatase 78 U/L (38-126); Aspartate Aminotransferase 50 IU/L (17-59); BUN Creatinine Ratio 19.6 (6-22); Bilirubin Total 0.8 mg/dL (0.2-1.3); Blood Urea Nitrogen 20 mg/dL (9-20); C-Reactive Protein Quant < 0.5 mg/dL (<1.0); Calcium 9.4 mg/dL (8.4-10.2); Carbon Dioxide 30 mmol/L (22-32); Chloride 103 mmol/L (98-107); Cholesterol 142 mg/dL (140-199); Estimated Glomerular Filt Rate > 60 mL/min (>60); Globulin 2.9 g/dL (1.7-4.1); Glucose 91 mg/dL (80-110); HDL Cholesterol 50 mg/dL (40-60); HEMOLYSIS < 15 (0-50); LDL Cholesterol Calculated 71 mg/dL (<100); Potassium 4.7 mmol/L (3.4-5.1); Sodium 138 mmol/L (137-145); Total Protein 7.2 g/dL (6.3-8.2); Triglycerides 104 mg/dL (35-150)
[2024-05-29 19:34] LABS: Percent Iron Saturation 35 % (20-50); Total Iron Binding Capacity 327 ug/dL (261-462); Transferrin 301 mg/dL (206-381)
[2024-05-29 19:51] LABS: Prostate Specific Antigen 3.22 ng/mL (0.10-4.00)
[2024-05-29 19:55] LABS: Thyroid Stimulating Hormone 2.07 uIU/mL (0.47-4.68)
[2024-05-29 20:01] LABS: Ferritin 94 ng/mL (18-464)
== END ==
PROVIDERS: Internal Medicine Sleep Medicine; Family Provider Family Medicine; PCP Family Medicine; Visit Provider Family Medicine
DX: E78.2 Mixed hyperlipidemia (principal); I10 Essential (primary) hypertension; R97.20 Elevated prostate specific antigen [PSA]; E83.10 Disorder of iron metabolism, unspecified; I24.0 Acute coronary thrombosis not resulting in myocardial infarction; I25.9 Chronic ischemic heart disease, unspecified; I65.23 Occlusion and stenosis of bilateral carotid arteries; I48.0 Paroxysmal atrial fibrillation; G25.81 Restless legs syndrome
CPT/HCPCS: 80053; 80061; 82728; 83540; 83550; 84153; 84443; 85025; 86140

== ENCOUNTER → 2024-07-04 10:40 | Outpatient (CLI) | payer MEDICARE, BC, SELFPAY ==
[2024-07-04 12:34] LABS: Alanine Aminotransferase 24 IU/L (<50); Albumin Globulin Ratio 1.7 (1.0-2.8); Alkaline Phosphatase 80 U/L (38-126); Aspartate Aminotransferase 28 IU/L (17-59); BUN Creatinine Ratio 17.8 (6-22); Bilirubin Total 0.7 mg/dL (0.2-1.3); Blood Urea Nitrogen 18 mg/dL (9-20); Calcium 9.1 mg/dL (8.4-10.2); Carbon Dioxide 26 mmol/L (22-32); Chloride 105 mmol/L (98-107); Estimated Glomerular Filt Rate > 60 mL/min (>60); Globulin 2.4 g/dL (1.7-4.1); Glucose 87 mg/dL (80-110); HEMOLYSIS < 15 (0-50); Magnesium 2.1 mg/dL (1.6-2.3); Potassium 4.7 mmol/L (3.4-5.1); Sodium 139 mmol/L (137-145); Total Protein 6.4 g/dL (6.3-8.2)
== END ==
LOC: LAB 10:43
PROVIDERS: Family Provider Family Medicine; PCP Family Medicine; Referring Provider Specialist; Visit Provider Specialist
DX: I10 Essential (primary) hypertension (principal); E78.2 Mixed hyperlipidemia
CPT/HCPCS: 36415; 80053; 80061; 83704; 83735

== ENCOUNTER → 2024-07-28 10:35 | Outpatient (CLI) | payer MEDICARE, BC, SELFPAY ==
--- NOTE | 2024-07-28 10:37 | DI.RAD.S_ITS ---
PROCEDURE: XR CHEST 2V INDICATIONS: WHHEEZE TECHNIQUE: 2 views of the chest were acquired. COMPARISON: None. FINDINGS: Surgical changes and devices: None. Lungs and pleura: Lungs are clear. No pleural effusions or pneumothorax. Mediastinum: Mediastinal contours are normal. Heart size is normal. Atherosclerotic vascular calcifications. Bones and chest wall: No suspicious bony abnormalities. Soft tissues appear unremarkable. Spinal cord stimulator noted. IMPRESSION: No acute cardiopulmonary abnormality is seen. Dictated by: Hudson Madrid M.D. on 07/29/2024 at 3:41 Approved by: Hudson Madrid M.D. on 07/29/2024 at 3:42
== END ==
PROVIDERS: Family Provider Family Medicine; PCP Family Medicine; Referring Provider Family Medicine; Visit Provider Family Medicine
DX: R06.2 Wheezing (principal)
CPT/HCPCS: 71046

== ENCOUNTER → 2024-08-12 14:28 | Outpatient (CLI) | payer MEDICARE, BC, SELFPAY ==
--- NOTE | 2024-08-12 14:29 | DI.CT.S_ITS ---
PROCEDURE: CT ANGIO CHEST PE PROTOCOL INDICATIONS: Wheezing TECHNIQUE: After the administration of intravenous contrast, 2 mm thick sections acquired from the pulmonary apices to the posterior costophrenic angles. 3-dimensional maximum intensity projection (MIP) coronal and sagittal reformats were then acquired through the thorax. For radiation dose reduction, the following was used: automated exposure control, adjustment of mA and/or kV according to patient size. COMPARISON: [facility], CR, XR CHEST 2V, 07/28/2024, 10:38. FINDINGS: Image quality: Diagnostic. Pulmonary arteries: Pulmonary arteries are normal in size, and demonstrate no intraluminal filling defects to suggest central pulmonary embolism. Lower Neck: No enlarged lymph nodes. Thyroid: No thyroid nodules which require sonographic follow up, per consensus guidelines. Axillae: No enlarged lymph nodes. Chest Wall: Unremarkable. Bones: Severe right glenohumeral osteoarthrosis. Degenerative changes are seen in the included spine. Spinal stimulator leads are present. Lungs and Pleura: No pneumothorax or pleural effusions. Mild mosaic attenuation likely related to areas of subsegmental atelectasis and air trapping versus mild edema. No consolidation or suspicious nodules. Heart: Heart size is mildly enlarged. No pericardial effusion. Moderate to severe coronary artery calcifications. Aortic valve calcifications are suspected. Thoracic Vessels: No aortic aneurysm. Mediastinum and Lesia: No enlarged lymph nodes. Esophagus: No wall thickening. No hiatal hernia. Upper Abdomen: Prominent colonic stool in the upper abdomen. Visualized upper abdomen solid organs and bowel loops appear normal. IMPRESSION: 1. No acute pulmonary embolus. 2. Mosaic attenuation in the lungs may be related to subsegmental air trapping versus mild edema. 3. Mild cardiomegaly. Moderate to severe coronary artery calcifications. Approved by: Wero Moody M.D. on 08/12/2024 at 15:53
[2024-08-12 14:53] LABS: Estimated Glomerular Filt Rate > 60 mL/min (>60)
== END ==
PROVIDERS: Family Provider Family Medicine; PCP Family Medicine; Referring Provider Family Medicine; Visit Provider Family Medicine
DX: Z00.00 Encounter for general adult medical examination without abnormal findings (principal); I25.10 Atherosclerotic heart disease of native coronary artery without angina pectoris; R06.2 Wheezing; I51.7 Cardiomegaly; M19.011 Primary osteoarthritis, right shoulder; Z96.82 Presence of neurostimulator
CPT/HCPCS: 36415; 71275; 82565; Q9967

== ENCOUNTER → 2024-08-19 11:27 | Outpatient (CLI) | payer MEDICARE, BC, SELFPAY ==
--- NOTE | 2024-08-19 11:28 | DI.ECHO.S_ITS ---
[facility] +---------+ [facility] : : [address] : : [place] : : [id number] : : Phone: [phone] Echocardiogram Report + + :Name: ERNESTO MCGRATH Study Date: 08/19/2024 Height: 74 in : :[facility] ReadingLocation: Weight: 225 lb : : Gender: Male BSA: 2.3 m2 : :: 1940 Age: 83 yrs BP: 157/96 mmHg: :Reason For Study: AORTIC STENOSIS : :Ordering Physician: SHRUTHI, : :MAGED Performed By: Cathy Sprague : :Referring: MAGED HAWKINS : + + Interpretation Summary Left ventricular systolic function remains normal with an estimated ejection fraction of 65 to 70% without focal abnormality and is unchanged from the previous study. There is a probable diastolic relaxation abnormality with normal filling pressures that may be slightly lower compared to the previous exam. The right ventricle remains mildly enlarged and is now mildly hypokinetic and slightly less dynamic compared to the previous study. CVP remains 28 mmHg plus the estimated CVP, likely similar to the previous exam. There is borderline right atrial enlargement that is slightly larger compared to the previous study. There is mild mitral and mild tricuspid regurgitation, the former being slightly more prominent compared to the previous study. There is probable moderate to severe aortic stenosis, perhaps slightly progressive, with a peak velocity of 3.7 m/s and a mean gradient of 35 mmHg, compared to 3.3 m/s and 27 mmHg, respectively, on the previous exam. The severity ratio and aortic valve area remain unchanged at 0.30 and 0.9 share holder?, respectively. There is trace aortic regurgitation and is slightly more prominent. The ascending aorta remains moderately enlarged at 4.0 cm but unchanged from the previous exam. The aortic arch measures 3.9 cm and was unable to be measured on the previous study. Procedure: A two-dimensional transthoracic echocardiogram with color flow and Doppler was performed. The study quality was technically adequate. Comparison is made with the echocardiogram of 03/03/2024. The patient was in sinus rhythm with heart rates between 60-66 bpm during the exam. Left Ventricle: The left ventricle appears normal in size, wall thickness, and systolic function without any focal wall motion abnormalities. The estimated left ventricular end diastolic volume is 108 mL compared to the previous 120 ml. The ejection fraction is estimated to be 65-70%. This is unchanged compared to the previous study. Diastolic parameters suggest a relaxation abnormality of the left ventricle, consistent with probable normal filling pressures. This is likely slightly lower compared to the previous study. Right Ventricle: The right ventricle is mildly dilated. Right ventricular systolic function is mildly reduced. This is slightly less dynamic compared to the previous study. Atria: The left atrial size is normal. The right atrium is borderline dilated. The right atrium has mildly increased in size since the prior echo exam. There is no Doppler evidence for an interatrial shunt. Mitral Valve: There is mild mitral annular calcification. The mitral valve leaflets are slightly calcified. There is mild mitral regurgitation. This is slightly more prominent compared to the previous study. Aortic Valve: The aortic valve is trileaflet. The aortic valve is moderately calcified. There is moderate to severely reduced leaflet mobility. There is moderate to severe aortic stenosis. This is possibly slightly progressive compared to the previous study. The peak aortic velocity is 3.7 m/sec. The peak aortic velocity on the previous exam was 3.3 m/sec. The aortic valve mean gradient is 35 mmHg compared to the previous 27 mmHg. The calculated aortic valve area is 0.94 cm2. The severity ratio remains unchanged at 0.30. There is trace aortic regurgitation. slightly more prominent. Tricuspid Valve: The tricuspid valve leaflets are thin and pliable. There is mild tricuspid regurgitation. This is unchanged compared to the previous study. Right ventricular systolic pressure is estimated to be 28 mmHg plus the clinically estimated CVP which cannot be estimated on this exam. This is likely unchanged compared to the previous study. Pulmonic Valve: The pulmonic valve leaflets are thin and pliable; valve motion is normal. There is no pulmonic valvular regurgitation. Great Vessels: The aortic root is normal size. The ascending aorta is moderately enlarged. The aortic arch is moderately enlarged. This is unchanged compared to the previous study. The inferior vena cava was not well visualized. Pericardium/ Pleura There is no pericardial effusion. There is no pleural effusion. MMode/2D Measurements & Calculations LVIDd: 4.8 cm LVOT diam: 2.1 cm LVIDs: 3.0 cm Ao root diam: 3.4 cm FS: 37.5 % asc Aorta Diam: 4.0 cm EPSS: 0.66 cm Ao Arch Diam (Prox Trans): 3.9 cm IVSd: 0.98 cm LVPWd: 0.95 cm LV valenzuela. diameter/BSA (cm/m^2): 2.1 LV sys. diameter/BSA (cm/m^2): 1.3 LA A2 area: 25.5 cm2 RA long axis: 6.6 cm LA A4 area: 19.7 cm2 RA area: 22.3 cm2 LA length (vol): 6.3 cm RA vol: 64.5 ml LA vol: 67.2 ml RA : 28.2 ml/m2 LA vol index: 29.4 ml/m2 RVD1 (basal): 4.3 cm RVD2 (mid): 4.3 cm TAPSE: 1.7 cm Doppler Measurements & Calculations Ao V2 max: 374.5 cm/sec LVOT Max Tyrone: 99.6 cm/sec Ao V2 mean: 268.1 cm/sec LV V1 max P.0 mmHg Ao max P.1 mmHg LV V1 VTI: 26.6 cm Ao mean P.0 mmHg SASHA(I,D): 1.1 cm2 Ao V2 VTI: 88.5 cm SASHA(V,D): 0.94 cm2 sev ratio: 0.30 SASHA indexed to BSA (cm^2/m^2): 0.47 MV E max tyrone: 70.8 cm/sec TR max tyrone: 263.0 cm/sec MV A max tyrone: 90.1 cm/sec TR max P.7 mmHg MV E/A: 0.79 PA V2 max: 122.7 cm/sec Med Peak E' Tyrone: 5.2 cm/sec PA V2 mean: 78.4 cm/sec E/E' med: 13.6 PA mean P.9 mmHg Lat Peak E' Tyrone: 10.1 cm/sec PA pr(Accel): 27.6 mmHg E/E' lat: 7.0 E/e' average: 10.3 MV dec time: 0.30 sec SV(LVOT): 94.5 ml Reading Physician:08:33 AM
== END ==
PROVIDERS: Family Provider Family Medicine; PCP Family Medicine; Referring Provider Specialist; Visit Provider Specialist
DX: I08.3 Combined rheumatic disorders of mitral, aortic and tricuspid valves (principal); I77.89 Other specified disorders of arteries and arterioles; R06.2 Wheezing
CPT/HCPCS: 93306; 94060; 94726; 94729

== ENCOUNTER → 2024-08-19 16:30 | Outpatient (CLI) | payer MEDICARE, BC, SELFPAY | LOC: RESP 12-10 17:23 | PROVIDERS: Family Provider Family Medicine; PCP Family Medicine; Referring Provider Family Medicine; Visit Provider Family Medicine | DX: R06.2 Wheezing (principal) | CPT/HCPCS: 94060; 94726; 94729 ==

== ENCOUNTER → 2025-02-12 11:15 | Outpatient (CLI) | payer MEDICARE, BC, SELFPAY ==
[2025-02-12 18:56] LABS: Hematocrit 44.7 % (41-53); Hemoglobin 15.4 g/dL (13.5-17.5); Mean Corpuscular HGB Conc 34.5 % (30-36); Mean Corpuscular Hemoglobin 30.8 PG (26-34); Mean Corpuscular Volume 89.2 fL (80-100); Platelet Count 173 X10^3/uL (150-400)
[2025-02-12 19:23] LABS: Alanine Aminotransferase 29 IU/L (<50); Albumin 4.2 g/dL (3.5-5.0); Albumin Globulin Ratio 1.6 (1.0-2.8); Alkaline Phosphatase 81 U/L (38-126); Blood Urea Nitrogen 16 mg/dL (9-20); Calcium 9.6 mg/dL (8.4-10.2); Carbon Dioxide 31 mmol/L (22-32); Chloride 103 mmol/L (98-107); Estimated Glomerular Filt Rate > 60 mL/min (>60); Globulin 2.6 g/dL (1.7-4.1); Glucose 92 mg/dL (70-99); HEMOLYSIS < 15 (0-50); Magnesium 1.9 mg/dL (1.6-2.3); Potassium 4.4 mmol/L (3.4-5.1); Sodium 138 mmol/L (137-145); Total Protein 6.8 g/dL (6.3-8.2)
[2025-02-12 19:32] LABS: NT-proBNP (BNP-Adult 18+) 200 pg/mL (<450)
== END ==
PROVIDERS: Family Provider Family Medicine; PCP Family Medicine; Visit Provider Specialist
DX: R06.09 Other forms of dyspnea (principal); I10 Essential (primary) hypertension; E78.2 Mixed hyperlipidemia
CPT/HCPCS: 80053; 80061; 83704; 83735; 83880; 85027